=== PATIENT | female | born 1970 | race Caucasian/White ===

== ENCOUNTER → 2017-01-22 | Outpatient (CLI) | payer BC ==
--- NOTE | 2017-01-22 11:44 | DI ---
US ABDOMEN LIMITED,01/22/2017 7:55 AM: Clinical History: Epigastric abdominal pain. Previous Exam: October 28, 2013 Findings: Multiple grayscale and color Doppler sonographic images are obtained through the right upper quadrant . The common bile duct is normal measuring 4 mm. The gallbladder is unremarkable. Visualized portions of the pancreas are unremarkable. The aorta is also unremarkable. The right kidney measures 11.5 cm in length without hydronephrosis nor nephrolithiasis. Impression: Normal right upper quadrant ultrasound.
--- NOTE | 2017-01-22 12:06 | DI ---
XR UPPER GI W/SBFT,01/22/2017 8:21 AM: Clinical History: Epigastric abdominal pain. Previous Exam: None at this facility. Findings: Multiple images from an upper gastrointestinal series and small bowel follow-through are obtained, an d demonstrate a normal-appearing esophagus. There is no evidence of hiatal hernia. The stomach demonstrates normal size, shape and distensibility. There are no intraluminal defects. Skeletal structures are unremarkable. The lungs are clear. There is gastroesophageal reflux disease noted at which extends into the esophagus. Small bowel loops are unremarkable with normal mucosal pattern. The terminal ileum is unremarkable. Visualized portions of the colon are unremarkable. Impression: Normal upper gastrointestinal series and small bowel follow-through.
== END ==
LOC: US 07:52
PROVIDERS: ATTEND Nurse Practitioner Family
DX: R10.13 Epigastric pain (principal); K21.9 Gastro-esophageal reflux disease without esophagitis
CPT/HCPCS: 74249; 76705

== ENCOUNTER → 2017-02-12 | Outpatient (CLI) | payer BC ==
--- NOTE | 2017-02-12 16:11 | DI ---
Tc-99 HIDA BILIARY SCAN WITH FATTY MEAL CHALLENGE, 02/12/2017 12:47 PM : Clinical History: Abdominal pain. Previous Related Exam: Gallbladder ultrasound, 01/22/2017. Prior to performing the study, the patient was given a preparatory meal. The patient was injected wit h 6 mCi of Tc-99 Choletec, a HIDA compound. An anterior dynamic flow study was performed followed by sequential anterior imaging at one minute intervals out to 50 minutes. The patient was then given a 3 8 gm fatty challenge and sequential anterior imaging at one minute intervals was carried out to 60 mi nutes for the gall bladder ejection phase. The patient did experience symptoms following the preparat ory meal and the fatty meal challenge. The patient complained of abdominal pain with the preparatory meal and abdominal "discomfort" with the fatty meal challenge. Gall bladder ejection fraction was kwadwo culated to be 73 %. Readin. Normal excretory Tc-99 HIDA biliary kinetics. 2. Normal gallbladder ejection fraction of 73%. 3. The significance of the patient's abdominal complaints following both the preparatory meal and th e fatty meal challenge is uncertain in view of the normal biliary kinetics and normal gallbladder eje ction fraction of 73%.
== END ==
LOC: NM 08:15
PROVIDERS: ATTEND Nurse Practitioner Family
DX: R10.84 Generalized abdominal pain (principal)
CPT/HCPCS: 78226; A9537